=== PATIENT | female | born 1945 | race Two or more races ===

== ENCOUNTER 2017-12-27 07:20 | Outpatient (CLI) | payer OTHER ==
[~2017-12-27 07:20] MED LIST: DOLOGESIC CAPSU1 CAP PO; ORPH100T PO
== END 2017-12-27 07:26 | disposition home or self-care (01) ==
LOC: SONOGRAMA 07:20
DX: R10.84 Generalized abdominal pain (principal)

== ENCOUNTER 2018-06-23 09:02 | Outpatient (CLI) | payer OTHER | END 2018-06-23 09:10 | disposition home or self-care (01) | LOC: RAD 09:02 | DX: I10 Essential (primary) hypertension (principal); E11.9 Type 2 diabetes mellitus without complications; M32.10 Systemic lupus erythematosus, organ or system involvement unspecified; M05.79 Rheumatoid arthritis with rheumatoid factor of multiple sites without organ or systems involvement; M15.0 Primary generalized (osteo)arthritis ==

== ENCOUNTER 2021-02-03 07:35 | Outpatient (CLI) | payer OTHER | END 2021-02-03 07:45 | disposition home or self-care (01) | LOC: TOM 07:35 | PROVIDERS: ATTEND Internal Medicine Gastroenterology | DX: R10.84 Generalized abdominal pain (principal); K57.92 Diverticulitis of intestine, part unspecified, without perforation or abscess without bleeding ==

== ENCOUNTER 2022-05-04 07:11 | Outpatient (CLI) | payer OTHER | END 2022-05-04 07:21 | disposition home or self-care (01) | LOC: TOM 07:11 | PROVIDERS: ATTEND Internal Medicine Gastroenterology | DX: K57.92 Diverticulitis of intestine, part unspecified, without perforation or abscess without bleeding (principal) | CPT/HCPCS: 74177; Q9965 ==

== ENCOUNTER 2022-07-02 13:31 | Emergency (ER) | payer OTHER ==
[~2022-07-02] VITALS: Ht 167.6 cm; Wt 64.4 kg
[2022-07-02] MEDS ORDERED: LOSARTAN POTASS50 MG PO (14:13)
[2022-07-02] MEDS ORDERED: SYNTHROID100 MCG PO (14:13)
[2022-07-02] MEDS ORDERED: ROSUVASTATIN CA20 MG PO (14:14)
[2022-07-02] MEDS ORDERED: GLIPIZIDE ER5 MG PO (14:14)
== END 2022-07-02 17:25 | disposition home or self-care (01) ==
LOC: ER 13:31
DX: S80.02XA Contusion of left knee, initial encounter (principal); Z88.0 Allergy status to penicillin; W22.8XXA Striking against or struck by other objects, initial encounter; Y93.9 Activity, unspecified; Y92.9 Unspecified place or not applicable

== ENCOUNTER 2022-08-03 07:36 | Outpatient (CLI) | payer OTHER ==
[~2022-08-03 07:36] MED LIST changes: +GLIPIZIDE ER5 MG PO; +LOSARTAN POTASS50 MG PO; +ROSUVASTATIN CA20 MG PO; +SYNTHROID100 MCG PO
== END 2022-08-03 07:47 | disposition home or self-care (01) ==
LOC: MRI 07:36
PROVIDERS: ATTEND General Practice
DX: G89.11 Acute pain due to trauma (principal); S80.02XA Contusion of left knee, initial encounter
CPT/HCPCS: 73721

== ENCOUNTER 2023-02-22 07:36 | Outpatient (CLI) | payer OTHER | END 2023-02-22 07:43 | disposition home or self-care (01) | LOC: TOM 07:36 | PROVIDERS: ATTEND Internal Medicine Gastroenterology | DX: R10.2 Pelvic and perineal pain (principal); Z12.11 Encounter for screening for malignant neoplasm of colon; K57.30 Diverticulosis of large intestine without perforation or abscess without bleeding ==

== ENCOUNTER 2025-02-19 07:07 | Outpatient (CLI) | payer OTHER | END 2025-02-19 07:09 | disposition home or self-care (01) | LOC: SONOGRAMA 07:07 | PROVIDERS: ATTEND Internal Medicine Gastroenterology | DX: R10.9 Unspecified abdominal pain (principal) ==

== ENCOUNTER 2025-04-28 14:22 | Inpatient (IN) | payer OTHER ==
[~2025-04-28] VITALS: Ht 167.6 cm; Wt 49.4 kg
--- NOTE | 2025-04-28 15:52 | NUR ---
SE RECIBE PACIENTE ALERTA Y ORIENTADA X3, ACOMPANADA POR FAMILIAR. PACIENTE REFIERE QUE EN EL DEIDRA DE HOY WAGNER SUFRIDO SONIA MAREOS DONDE PERDIO EL BALANCE. SE MIDEN SIGNOS VITALES Y SE REALIZA EKG. EKG EVALUADO POR DR. MEJIA. SE UBICA PACIENTE PARA EVALUACION MEDICA.
[2025-04-28] MEDS ORDERED: SODIUM CHLORIDE 0.45 % 1,000 ML IV STA (16:18)
[2025-04-28 18:47] LABS: BASO % 0.5 % (0.1-1.2); EOS # 0.06 (0.04-0.54); EOS % 0.9 % (0.7-7.0); LYMPH # 1.82 (1.18-3.74); LYMPH % 27.7 % (19.3-53.1); MEAN PLATELET VOLUME 9.60 fl (9.4-12.4); MONO # 0.52 (0.24-0.82); MONO % 7.9 % (4.7-12.5); NEUT # 4.12 (1.56-6.13); NEUT % 62.8 % (34.0-71.1); RED CELL DISTRIBUTION WIDTH 13.4 % (11.6-14.4)
[2025-04-28 19:26] LABS: ALT/SGPT 40.0 U/L (12-78); AST/SGOT 43.0 U/L (15-37); BILIRUBIN TOTAL 0.54 mg/dL (0.3-1.2); BUN CREA RATIO 34.0 (7.0-25.0); CREATININE SERUM 1.42 mg/dL (0.55-1.02); GFR 35.87; GLOBULINA 3.5 G/DL (2.4-3.5); GLUCOSE FASTING 90.0 mg/dL (65-100); OSMOLALITY SERUM 292.0 MOSM/KG (275-295)
[2025-04-28 19:31] LABS: COVID-19 AG NEGATIVE (NEGATIVE)
[2025-04-28] MEDS ORDERED: ASPIRIN 325 MG TABLET.EC PO STA (19:52)
[2025-04-28] MEDS ORDERED: CLOPIDOGREL BISULFATE 75 MG TABLET PO STA (19:53)
[2025-04-28] MEDS ORDERED: ATORVASTATIN CALCIUM 40 MG TABLET PO STA (19:53)
--- NOTE | 2025-04-28 20:57 | NUR ---
SE RECIBE PACIENTE EN UNIDAD DE CTITICO POR LESLY FOLWER. SE UBICA PACIENTE EN CAMA #3, POSICION MAS BAJA Y BARANDAS ELEVADAS POR SEGURIDAD. SE CONECTA A MONITOR CARDIACO Y OXIMETRIA DE PULSO CONTINUA. PACIENTE CANALIZADA EN BRAZO SID CON IVF'S JUAN JOSE ORDEN MEDICA. SE ADMINISTRAN MEDICAMENTOS ORDENADOS. SE REPITE EKG Y SE PRESENTA A DR MEJIA. PENDIENTE MUESTRA DE TROPONINA A LAS 10:00PM.
[2025-04-28] MEDS ORDERED: ACETAMINOPHEN 325 MG TABLET PO PRN (22:30)
[2025-04-28] MEDS ORDERED: DEXTROSE 50 % IN WATER 0.5 G/ML DISP.SYRIN IV PRN (22:30)
[2025-04-28] MEDS ORDERED: 0.9 % SODIUM CHLORIDE 1,000 ML IV SCH (22:30)
[2025-04-28] MEDS ORDERED: INSULIN LISPRO 1,000 UNIT/10 ML UNITS SUBCUTANEO PRN (22:30)
[2025-04-28] MEDS ORDERED: ONDANSETRON HCL 4 MG in 0.9 % SODIUM CHLORIDE 50 ML IV PRN (22:30)
[2025-04-28 23:00] VITALS: BP 149/60; O2SAT 99
[2025-04-29] VITALS (7 sets, daily range): BP systolic 110–162; BP diastolic 50–71; O2SAT 96–100
[2025-04-29] MEDS ORDERED: LEVOTHYROXINE SODIUM 100 MCG TABLET PO SCH (06:00)
[2025-04-29] MEDS ORDERED: ASPIRIN 81 MG TABLET.EC PO SCH (09:00)
[2025-04-29] MEDS ORDERED: LOSARTAN POTASSIUM 100 MG TABLET PO SCH (09:00)
[2025-04-29] MEDS ORDERED: ENOXAPARIN SODIUM 30 MG/0.3 ML SYRINGE SUBCUTANEO SCH (09:00)
[2025-04-29] MEDS ORDERED: SERTRALINE HCL 25 MG TABLET PO SCH (09:00)
[2025-04-29] MEDS ORDERED: NIFEDIPINE 30 MG TAB.SA.OSM PO SCH (12:00)
[2025-04-29] MEDS ORDERED: ROSUVASTATIN CALCIUM 20 MG TABLET PO SCH (21:00)
[2025-04-29] MEDS ORDERED: DILTIAZEM HCL 120 MG TABLET PO SCH (21:00)
[2025-04-30] VITALS (8 sets, daily range): BP systolic 116–151; BP diastolic 57–72; O2SAT 8–99
[2025-04-30 15:19] LABS: BUN CREA RATIO 29.0 (7.0-25.0); CREATININE SERUM 0.87 mg/dL (0.55-1.02); GFR 63.13; GLUCOSE FASTING 102.0 mg/dL (65-100); OSMOLALITY SERUM 291.0 MOSM/KG (275-295); PHOSPHOKINASE CREATININE 124.0 U/L (26-192)
[2025-05-01] VITALS (9 sets, daily range): BP systolic 126–132; BP diastolic 62–75; O2SAT 97–100
[2025-05-01 15:23] LABS: BASO % 0.5 % (0.1-1.2); EOS # 0.10 (0.04-0.54); EOS % 1.8 % (0.7-7.0); LYMPH # 1.42 (1.18-3.74); LYMPH % 25.8 % (19.3-53.1); MEAN PLATELET VOLUME 10.20 fl (9.4-12.4); MONO # 0.47 (0.24-0.82); MONO % 8.5 % (4.7-12.5); NEUT # 3.48 (1.56-6.13); NEUT % 63.4 % (34.0-71.1); RED CELL DISTRIBUTION WIDTH 13.3 % (11.6-14.4)
[2025-05-01 16:01] LABS: BUN CREA RATIO 30.0 (7.0-25.0); CREATININE SERUM 0.71 mg/dL (0.55-1.02); GFR 79.82; GLUCOSE FASTING 103.0 mg/dL (65-100); OSMOLALITY SERUM 290.0 MOSM/KG (275-295)
[2025-05-01] MEDS ORDERED: VITAMIN B COMPLEX/LYSINE 15 ML BLIST.PACK PO SCH (17:00)
[2025-05-02 02:02] VITALS: O2SAT 96
[2025-05-02 02:53] VITALS: BP 100/53; O2SAT 96
[2025-05-02 05:32] VITALS: O2SAT 97
[2025-05-02 09:08] VITALS: BP 139/66; O2SAT 99
[2025-05-02 09:33] VITALS: O2SAT 99
[2025-05-02 14:09] VITALS: O2SAT 97
== END 2025-05-02 16:05 | disposition home or self-care (01) | DRG 683 ==
LOC: ER 14:22 → SEC-K 23:08 → MEDI 04-29 15:03
PROVIDERS: General Practice; ADMIT Student in an Organized Health Care Education/Training Program; ATTEND Student in an Organized Health Care Education/Training Program
PROC: B246ZZZ Ultrasonography of Right and Left Heart (ICD-10-PCS; principal; 2025-04-28)
PROC: 4A12X4Z Monitoring of Cardiac Electrical Activity, External Approach (ICD-10-PCS; 2025-04-30)
PROC: 3E033HZ Introduction of Radioactive Substance into Peripheral Vein, Percutaneous Approach (ICD-10-PCS; 2025-04-30)
PROC: 4A12XM4 Monitoring of Cardiac Stress, External Approach (ICD-10-PCS; 2025-05-01)
DX: N17.8 Other acute kidney failure (principal); I24.9 Acute ischemic heart disease, unspecified; R42 Dizziness and giddiness; R79.89 Other specified abnormal findings of blood chemistry
CPT/HCPCS: 93306; 78452; 93228; 93017; A9500